=== PATIENT | female | born 1955 | race Caucasian/White ===

== ENCOUNTER 2017-04-03 12:52 | Emergency (ER) | payer BC, OTHER ==
[2017-04-03] MEDS: DIAZEPAM 5 MG TAB PO (15:45)
[2017-04-03] MEDS: KETOROLAC 15 MG INJ IM (15:45)
== END 2017-04-03 18:17 | disposition home or self-care (01) ==
LOC: FTE 12:52
DX: M54.6 Pain in thoracic spine (principal); R51 Headache
CPT/HCPCS: 70450; 72040; 96372; 99285-25

== ENCOUNTER 2017-12-03 09:11 | Emergency (ER) | payer BC ==
[2017-12-03] MEDS: IBUPROFEN 600 MG TAB PO (09:54)
[2017-12-03] MEDS: SODIUM CHLORIDE 0.9% 1L BAG IV* (09:54)
[2017-12-03 09:57] LABS: ADD MAN DIFF? NO
[2017-12-03 10:00] LABS: BASOPHIL # 0.1 10^3/ul (0.0-0.1); BASOPHILS % 0.3 % (0.0-2.0); EOSINOPHILS % 0.2 % (0.0-7.0); HEMATOCRIT 39.9 % (37.0-47.0); HEMOGLOBIN 13.3 g/dl (12.0-16.0); LYMPHOCYTES % 5.6 % (15.0-51.0); MEAN CORPUSCULAR HEMOGLOBIN 28.8 pg (29.0-33.0); MEAN CORPUSCULAR HGB CONC 33.3 g/dl (32.0-37.0); MEAN CORPUSCULAR VOLUME 86.4 fl (82.0-101.0); MEAN PLATELET VOLUME 9.9 fl (7.4-10.4); MONOCYTE # 0.7 10^3/ul (0.3-0.9); NEUTROPHIL # 16.2 10^3/ul (1.6-7.5); PLATELET COUNT 261 10^3/UL (140-415); RED BLOOD COUNT 4.62 10^6/ul (4.20-5.40); RED CELL DISTRIBUTION WIDTH 13.2 % (11.5-14.5)
[2017-12-03 10:00] LABS: WHITE BLOOD COUNT 18.2 10^3/ul (4.8-10.8)
[2017-12-03 10:14] LABS: ADD UMIC YES; UR ASCORBIC ACID NEGATIVE (NEGATIVE); UR BILIRUBIN (Dip) NEGATIVE (NEGATIVE); UR BLOOD (Dip) 1+ mg/dL (NEGATIVE); UR CLARITY CLEAR (CLEAR); UR COLOR YELLOW (YELLOW); UR GLUCOSE (Dip) 2+ mg/dL (NEGATIVE); UR KETONES (Dip) NEGATIVE (NEGATIVE); UR LEUKOCYTE ESTERASE (Dip) 1+ Leu/ul (NEGATIVE); UR NITRITE (Dip) NEGATIVE (NEGATIVE); UR NONSQUAMOUS EPITHELIAL CELL 3 /HPF (NONE SEEN); UR RBC 25 /HPF (0-5); UR SPECIFIC GRAVITY (Dip) 1.019 (1.003-1.030); UR SQUAMOUS EPITHELIAL CELL FEW /HPF (FEW); UR TOTAL PROTEIN (Dip) NEGATIVE (NEGATIVE); UR UROBILINOGEN (Dip) NEGATIVE (NEGATIVE); UR WBC 19 /HPF (0-5)
[2017-12-03] MEDS: CEFTRIAXONE 1 GM/50 ML (PMX) 50 ML IVPB (10:15)
[2017-12-03 10:56] LABS: ALANINE AMINOTRANSFERASE 16 IU/L (13-69); ALBUMIN 4.1 g/dl (3.3-4.9); ALBUMIN/GLOBULIN RATIO 1.41; ALKALINE PHOSPHATASE 95 IU/L (42-121); ANION GAP 14 (8-16); ASPARTATE AMINO TRANSFERASE 31 IU/L (15-46); BILIRUBIN,INDIRECT 0.6 mg/dl (0-1.1); BILIRUBIN,TOTAL 0.6 mg/dl (0.2-1.3); BLOOD UREA NITROGEN 16 mg/dl (7-20); CALCIUM 8.9 mg/dl (8.4-10.2); CARBON DIOXIDE 25 mmol/L (21-31); CHLORIDE 103 mmol/L (97-110); GLUCOSE 195 mg/dl (70-220); LIPASE 113 U/L (23-300); POTASSIUM 4.1 mmol/L (3.5-5.1); SODIUM 138 mmol/L (135-144)
[2017-12-03 11:07] LABS: TROPONIN-I < 0.012 ng/ml (0.000-0.120)
== END 2017-12-03 13:03 | disposition home or self-care (01) ==
LOC: E/R 09:11
DX: J02.0 Streptococcal pharyngitis (principal)
CPT/HCPCS: 36415; 71045; 80053; 81001; 83605; 83690; 84484; 85025; 87040; 87086; 87880; 96374; 99284-25

== ENCOUNTER 2018-03-23 10:44 | Emergency (ER) | payer BC | END 2018-03-23 12:21 | disposition home or self-care (01) | LOC: FTE 10:44 | DX: J02.9 Acute pharyngitis, unspecified (principal) | CPT/HCPCS: 87880; 99283 ==